=== PATIENT | male | born 1945 | race Caucasian/White ===

== ENCOUNTER → 2017-09-12 | Outpatient (CLI) | payer OTHER, MEDICARE ==
[~2017-09-12] MED LIST: COMMODE 3-IN-11 MIS; COZA100T PO; DICL75TA PO; ECASA81 PO; OXYC1TAB63 PO; PERC7.5T13 PO; SPIR25TA3 PO; WALKER WHEELS/F1 MIS; Z.0.NO CURRENT MEDS
== END ==
LOC: CPRE 11:46
PROVIDERS: ATTEND Orthopaedic Surgery Orthopaedic Surgery of the Spine
DX: Z01.812 Encounter for preprocedural laboratory examination (principal)

== ENCOUNTER 2017-09-15 07:33 | Inpatient (IN) | payer OTHER, MEDICARE ==
[~2017-09-15] VITALS: Ht 180.3 cm; Wt 142.7 kg
[~2017-09-15 07:33] MED LIST changes: -COMMODE 3-IN-11 MIS; -ECASA81 PO; -OXYC1TAB63 PO; -PERC7.5T13 PO; -WALKER WHEELS/F1 MIS; -Z.0.NO CURRENT MEDS
[2017-09-15] MEDS ORDERED: GENTAMICIN SULFATE 80 MG/2 ML VIAL ONE (07:56)
[2017-09-15] MEDS ORDERED: CHLORHEXIDINE GLUCONATE 2 % 1 PACK (2 CLOTHS) TOPICAL PRN (08:45)
[2017-09-15] MEDS ORDERED: SODIUM CHLORID 0.9% 500 ML IV PRN (08:45)
[2017-09-15] MEDS ORDERED: VANCOMYCIN 1000 MG/NS 250 ML (for <70 kg) IV SCH ×2 (08:45)
[2017-09-15] MEDS ORDERED: POVIDONE IODINE 5% (ANTISEPSIS KIT) 4 APPLICATIONS EACH NARE PRN (08:45)
[2017-09-15] MEDS ORDERED: CHLORHEXIDINE GLUCONATE 4% SOLN 120 ML BTL TOPICAL SCH (08:45)
[2017-09-15] MEDS ORDERED: METOPROLOL TARTRATE 25 MG TAB PO PRN (08:45)
[2017-09-15] MEDS ORDERED: LACTATED RINGER'S 1000 ML IV PRN (08:45)
[2017-09-15] MEDS ORDERED: TRANEXAMIC ACID IV SCH (09:00)
[2017-09-15] MEDS ORDERED: EXPAREL PERI-ARTICULAR INJECTION (TOTAL VOL. 60 ML) P-ARTICULR SCH ×2 (09:00)
[2017-09-15] MEDS ORDERED: SODIUM CHLORIDE 0.9% IV SCH (09:00)
[2017-09-15] MEDS ORDERED: ACETAMINOPHEN 1000 MG/100 ML 100 ML IV ONE (09:36)
[2017-09-15] MEDS ORDERED: DEXAMETHASONE SOD PHOS PF 10 MG/ML VIAL ONE (09:42)
[2017-09-15] MEDS ORDERED: BUPIVACAINE HCL PF 0.25% 30 ML VIAL ONE (09:42)
[2017-09-15] MEDS ORDERED: BUPIVACAINE LIPOSOME PF 1.3% 20 ML VIAL ONE ×2 (09:53)
[2017-09-15] MEDS ORDERED: ceFAZolin INJ 1,000 MG VIAL ONE (10:12)
[2017-09-15] MEDS ORDERED: ONDANSETRON HCL 4 MG/2 ML VIAL IV ONE (12:00)
[2017-09-15] MEDS ORDERED: LACTATED RINGER'S 1000 ML INJ 2,000 ML IV ONE (12:00)
[2017-09-15] MEDS ORDERED: ROCURONIUM INJ 50 MG/5 ML SYRINGE IV PUSH ONE (12:00)
[2017-09-15] MEDS ORDERED: LIDOCAINE HCL 1% PF 5 ML SYRINGE OTHER ONE (12:00)
[2017-09-15] MEDS ORDERED: ePHEDrine/NS 25 MG/5 ML SYRINGE IV ONE (12:00)
[2017-09-15] MEDS ORDERED: GLYCOPYRROLATE 1 MG/5 ML SYRINGE IV PUSH ONE (12:00)
[2017-09-15] MEDS ORDERED: SODIUM CHLORIDE 0.9% 20 ML VIAL IV ONE (12:00)
[2017-09-15] MEDS ORDERED: PHENYLEPH/NS 1000 MCG/10 ML SYR IV ONE (12:00)
[2017-09-15] MEDS ORDERED: NEOSTIGMINE 5 MG/5 ML SYRINGE IV PUSH ONE (12:00)
[2017-09-15] MEDS ORDERED: PROPOFOL 200 MG/20 ML AMP IV ONE (12:00)
[2017-09-15] MEDS ORDERED: diphenhydrAMINE HCL 50 MG/ML VIAL ONE (12:20)
--- NOTE | 2017-09-15 12:25 | PD.OP ---
cc: Kwame Velazquez MD Operative Report Date of Surgery: Sep 15, 2017 Preoperative Diagnosis: Osteoarthritis left knee Postoperative Diagnosis: Same Procedure: Left total knee replacement arthroplasty Anesthesia: Gen. with regional block for pain control Surgeon: Kwame Velazquez Regional Facilities Manager(s): MARIJA Victoria Operation and Findings: EBL: 100 cc INDICATION: This patient presents with long-standing arthritis of the knee. Attachment record documents conservative measures. The patient now presents for surgical treatment. NOTE: Jany Victoria PA-C was present for the entire surgical procedure as my assistant analyst. In my medical opinion her skill and care was necessary for proper management of this patient. TOURNIQUET TIME: 71 minutes COMPANY: [employer] FEMUR: Size 5, cruciate retaining, cemented TIBIA: Size 4, fixed bearing, cemented PATELLA: 38 mm POLYETHYLENE INSERT: 9, cruciate retaining mm PROCEDURE: This patient was brought the operating room and anesthetized in the supine position. The patient was positioned supine on the table. The tourniquet was placed about the thigh, and the leg was scrubbed with alcohol followed by Hibiclens followed by ChloraPrep and draped sterilely. A timeout was done, and antibiotics were given. After exsanguination the tourniquet was inflated to 250 mmHg. An anterior incision was made and a median parapatellar arthrotomy was performed. The patella was released laterally and subluxed allowing freehand cut of the patella which was then sized. A metal cap was placed over the exposed patellar surface for protection. A airline transport pilot hole was placed in the distal femur allowing a 3 valgus cut removing 10 mm from the distal femur. Anterior posterior and chamfer cuts were made. The posterior stabilize osteotomy was made. The attention was directed to the tibia. Retractors were positioned. The external alignment guide was used allowing the lateral tibia to be used as referencing guide and cut utilizing an oscillating saw taking care to avoid any injury to the surrounding soft tissues. This was sized properly. Trial reduction showed that the insert fit nicely. The patient had range of motion extension 0 flexion 125. A medial release was not necessary. The bony surfaces prepared. On the back table 2 packets of methylmethacrylate were mixed. The components were cemented. Excess cement was removed. The tourniquet let down and hemostasis was controlled. The final plastic insert was inserted. Range of motion was the same as previously noted. A drain was brought through a separate stab incision. The arthrotomy was repaired with interrupted #1 Vicryl suture, subcutaneous tissue 2-0 Vicryl suture and skin with metallic uriel A sterile dressing was applied. Sponge counts, needle counts and instrument counts were all correct. The patient tolerated procedure well and was taken to recovery in satisfactory condition. FINDINGS: There was severe osteoarthritis with erosion of bone stock worse, in the medial compartment. The final solution was excellent. There was no complication was appreciated. Kwame Velazquez MD Sep 15, 2017 12:25
[2017-09-15] MEDS ORDERED: ECASA81 PO (12:26)
[2017-09-15] MEDS ORDERED: OXYC1TAB63 PO (12:26)
[2017-09-15] MEDS ORDERED: ASPIRIN EC 81 MG TABEC PO ONE (12:30)
[2017-09-15] MEDS ORDERED: oxyCODONE/ACETAMINOPHEN 5 MG/325 MG TAB PO PRN (12:30)
[2017-09-15] MEDS ORDERED: TEMAZEPAM 15 MG CAP PO PRN (12:30)
[2017-09-15] MEDS ORDERED: MORPHINE SULFATE 8 MG/ML INJ IM PRN (12:30)
[2017-09-15] MEDS ORDERED: NALOXONE HCL 0.4 MG/ML AMP IV PUSH PRN (12:30)
[2017-09-15] MEDS ORDERED: MISCELLANEOUS PHARMACY INFORMATION XX ONE (12:30)
[2017-09-15] MEDS ORDERED: MISCELLANEOUS NURSING INFORMATION XX PRN (12:30)
[2017-09-15] MEDS ORDERED: Post-op Orders (for Pharmacy) XX ONE (12:30)
[2017-09-15] MEDS ORDERED: MORPHINE SULFATE 4 MG/ML INJ ONE (13:09)
[2017-09-15] MEDS ORDERED: MIDAZOLAM HCL 2 MG/2 ML VIAL ONE (13:09)
[2017-09-15] MEDS: LACTATED RINGER'S 1000 ML INJ 1,000 ML IV SCH (13:30)
[2017-09-15] MEDS ORDERED: *morphine SULFATE 10 MG/ML PERIprocedure ONLY ONE ×2 (13:45→14:09)
--- NOTE | 2017-09-15 13:49 | RADRPT ---
EXAM DATE/TIME: 09/15/2017 13:25 [facility] COMPARISON: No previous studies available for comparison. INDICATIONS : Left total knee replacement. MEDICAL HISTORY : Hypertension. Arthritis. SURGICAL HISTORY : Total knee replacement, left. ENCOUNTER: Initial ACUITY: 1 day PAIN SCORE: 10/10 LOCATION: Left knee. FINDINGS: Two view examination of the left knee demonstrates status post total knee arthroplasty. A surgical dr madsen overlies the suprapatellar bursa laterally. Bony mineralization is normal. CONCLUSION: Unremarkable limited examination of the left knee status post total knee arthroplasty. Jake Santamaria MD on September 15, 2017 at 13:46 Board Certified Radiologist. This report was verified electronically.
[2017-09-15 14:40] VITALS: BP 117/67; PULSE 77; RESP 18; TEMP 96.3; O2SAT 99
[2017-09-15] MEDS ORDERED: DO NOT ADM ANY ANTICOAGULANT DRUGS PRN (14:45)
[2017-09-15] MEDS: oxyCODONE/ACETAMINOPHEN 5 MG/325 MG TAB PO PRN ×2 (15:40→19:53)
[2017-09-15] MEDS: MAGNESIUM HYDROXIDE SUSP 30 ML CUP PO SCH (19:54)
[2017-09-15] MEDS: SENNOSIDES 8.6 MG TAB PO SCH (19:54)
[2017-09-15] MEDS: ASPIRIN EC 81 MG TABEC PO SCH (19:56)
[2017-09-15 20:15] VITALS: BP 103/59; PULSE 85; RESP 18; TEMP 97.4; O2SAT 98
[2017-09-16] VITALS (8 sets, daily range): BP systolic 103–127; BP diastolic 53–72; PULSE 71–98; RESP 16–18; TEMP 97–98.5; O2SAT 95–98
[2017-09-16] MEDS: LACTATED RINGER'S 1000 ML INJ 1,000 ML IV SCH ×2 (00:50→13:20)
[2017-09-16] MEDS: oxyCODONE/ACETAMINOPHEN 5 MG/325 MG TAB PO PRN ×3 (02:21→09:58)
[2017-09-16 06:10] LABS: HEMATOCRIT 32.1 % (39.0-51.0); HEMOGLOBIN 10.7 GM/DL (13.0-17.0)
[2017-09-16] MEDS ORDERED: WALKER WHEELS/F1 MIS (07:53)
[2017-09-16] MEDS ORDERED: COMMODE 3-IN-11 MIS (07:54)
--- NOTE | 2017-09-16 07:54 | HHI.DCPOC ---
Discharge Care Plan Diagnosis: (1) Osteoarthritis of left knee Your Health Problems Are: Difficulty with ADL Incision/Drains Inflammation Goals to Promote Your Health * To prevent worsening of your condition and complications * To maintain your health at the optimal level Directions to Meet Your Goals Take your medications as prescribed Follow your dietary instruction Follow activity as directed Keep your appointments as scheduled Take your immunizations and boosters as scheduled If your symptoms worsen call your PCP, if no PCP go to Urgent Care Center or Emergency Room Smoking is Dangerous to Your Health. Avoid second hand smoke Call the 24-hour hour crisis hotline for domestic abuse at Shavonne Verma Sep 16, 2017 07:54
--- NOTE | 2017-09-16 07:55 | PD.ORT.PN ---
Subjective Subjective Remarks No complaints. Pain well controlled. Drain intact. Ambulating independently Objective Vitals Vital Signs Date Time Temp Pulse Resp B/P (MAP) Pulse Ox O2 Delivery O2 Flow Rate FiO2 09/16/17 04:47 97 21 09/16/17 04:15 97.0 98 18 127/59 (81) 97 09/16/17 00:20 97.5 78 18 116/57 (76) 96 09/15/17 20:15 97.4 85 18 103/59 (74) 98 09/15/17 14:40 96.3 77 18 117/67 (84) 99 09/15/17 14:15 98.0 69 16 113/61 (78) 97 Nasal Cannula 2 09/15/17 14:00 73 16 109/67 (81) 97 Nasal Cannula 2 09/15/17 13:45 71 16 108/58 (75) 97 Nasal Cannula 2 09/15/17 13:30 74 16 107/58 (74) 95 Nasal Cannula 2 09/15/17 13:15 74 16 102/59 (73) 96 Nasal Cannula 2 09/15/17 13:00 98.0 81 16 109/58 (75) 91 Nasal Cannula 2 09/15/17 08:10 98.6 75 20 137/79 (98) 96 I/O 09/15/17 09/15/17 09/15/17 09/16/17 09/16/17 09/16/17 07:00 15:00 23:00 07:00 15:00 23:00 Intake Total 1785 ml 480 ml 960 ml Output Total 3100 ml 360 ml 360 ml Balance -1315 ml 120 ml -360 ml 960 ml Intake Oral 60 ml 480 ml 960 ml IV Total 1725 ml Output Urine Total 0 ml Drainage Total 360 ml 360 ml Estimated Blood Loss 100 ml Other 3000 ml # Voids 1 4 # Bowel Movements 0 0 Result Diagram: 09/16/17 0525 Imaging Last 24 hours Impressions Knee X-Ray 09/15/17 1220 Signed Impressions: Service Date/Time: August 13:25 - CONCLUSION: Unremarkable limited examination of the left knee status post total knee arthroplasty. Jake Santamaria MD Objective Remarks Drain intact. 600 cc postop. Dressing dry. X-ray find. Neuro exam normal. No calf tenderness or abnormal swelling Assessment & Plan Assessment and Plan Osteoarthritis left knee. Surgery: Left TKA. PLAN: Aspirin twice a day, 81 mg. Oxycodone for pain. Would be able to be discharged today but drainage is still fairly high from drain. DC drain Tuesday and discharged home. Home healthcare. Home physical therapy. Weightbearing as tolerated. No dressing change Orthopedically stable Kwame Velazquez MD Sep 16, 2017 07:55
--- NOTE | 2017-09-16 07:58 | HHI.FF ---
Face to Face Verification Diagnosis: (1) Osteoarthritis of left knee Physical Therapy Gait training, Safety evaluation, Transfer training, bed to chair Knee: Total knee, Protocol: Left, Full weight bearing Canvas Knee Splint: When in bed & 2 pillows btw thighs Left LE Weight Bearing: WB as tolerated Additional Instructions PT 4 days/wk for 2 weeks. WBAT LLE. TKA protocol. CPM twice daily 0-60 with goal of 100 flexion. Nursing RN Days per Week: 2 x Week(s): 1 Dressing Changes: Do not change dressing Additional Instructions Vitals assessment. Dressing assessment - do not change unless saturated or erythema. I have seen patient Brennan Hoyt Nikkodelma on 09/16/17. My clinical findings support the need for the requested home health care services because: Limited ability to care for self High risk of falls I certify that my clinical findings support that this patient is homebound because: Post-op weakness Unsteady gait/balance Shavonne Verma Sep 16, 2017 07:58
--- NOTE | 2017-09-16 07:59 | HHI.DS ---
Discharge Summary Admission Date Sep 15, 2017 at 07:33 Discharge Date: Sep 17, 2017 Admitting Diagnosis see below Diagnosis: (1) Osteoarthritis of left knee Diagnosis: Principal ICD Codes: M17.12 - Unilateral primary osteoarthritis, left knee Procedures Left total knee arthroplasty Brief History This is a 72 year old male patient CBC/BMP: 09/16/17 0525 Significant Findings Laboratory Tests Test 09/16/17 05:25 Hemoglobin 10.7 GM/DL (13.0-17.0) Hematocrit 32.1 % (39.0-51.0) PE at Discharge Drain intact. 600 cc postop. Dressing dry. X-ray find. Neuro exam normal. No calf tenderness or abnormal swelling Hospital Course Increased drain output day #1. Continued drain to day #2. Percocet 5mg, ASA 81mg bid. HHC. Pt Condition on Discharge: Stable Discharge Disposition: Disch w/ Home Health Serv Discharge Instructions Diet Instructions: As Tolerated, No Restrictions, High Fiber Diet Activities You Can Perform: Weight Bearing as Javier Activities to Avoid: Strenuous Activity New Medications: Commode 3-in-1 (Commode 3-in-1) 1 Mis Mis EA .ROUTE DIRECTED, #1 0 Refills Walker with Front Wheels (Walker with Front Wheels) 1 Mis Mis EA .ROUTE DIRECTED, #[address] (Aspirin DR) 81 Mg Tabdr 81 MG PO BID for Prevent Blood Clot, #60 TAB Oxycodone HCl/Acetaminophen (Oxycodone-Acetaminophen 5-325) 5 Mg-325 Mg Tablet 1 TAB PO Q4H PRN for pain, #50 TAB Continued Medications: Diclofenac Sodium (Diclofenac Sodium DR) 75 Mg Tabdr 75 MG PO BID, #60 TAB 0 Refills Losartan (Cozaar) 100 Mg Tab 100 MG PO DAILY for Blood Pressure Management, #30 TAB 0 Refills Spironolactone-Hydrochlorothiazide (Spironolactone-Hydrochlorothiazide) 25-25 Mg Tab 1 TAB PO DAILY, #30 TAB 0 Refills Shavonne Verma Sep 16, 2017 07:59
[2017-09-16] MEDS: LOSARTAN 50 MG TAB PO SCH (09:57)
[2017-09-16] MEDS: MAGNESIUM HYDROXIDE SUSP 30 ML CUP PO SCH ×2 (09:58→20:22)
[2017-09-16] MEDS: SPIRONOLACTONE/HCTZ 25 MG/25 MG TAB PO SCH (09:58)
[2017-09-16] MEDS: ASPIRIN EC 81 MG TABEC PO SCH ×2 (09:58→20:22)
[2017-09-16] MEDS ORDERED: oxyCODONE/ACETAMINOPHEN 7.5 MG/325 MG TAB PO PRN (13:30)
[2017-09-16] MEDS: oxyCODONE/ACETAMINOPHEN 7.5 MG/325 MG TAB PO PRN ×3 (13:35→21:37)
[2017-09-16] MEDS: SENNOSIDES 8.6 MG TAB PO SCH (20:22)
[2017-09-17] VITALS: BP 101/64; PULSE 85; RESP 16; TEMP 96.6; O2SAT 96
[2017-09-17] MEDS: LACTATED RINGER'S 1000 ML INJ 1,000 ML IV SCH ×2 (01:01→14:20)
[2017-09-17] MEDS: oxyCODONE/ACETAMINOPHEN 7.5 MG/325 MG TAB PO PRN ×4 (01:31→13:38)
[2017-09-17 07:21] LABS: HEMATOCRIT 28.9 % (39.0-51.0); HEMOGLOBIN 9.9 GM/DL (13.0-17.0)
[2017-09-17 08:00] VITALS: BP 114/59; PULSE 79; RESP 16; TEMP 97.6; O2SAT 96
[2017-09-17] MEDS: LOSARTAN 50 MG TAB PO SCH ×2 (09:00→09:25)
[2017-09-17] MEDS ORDERED: PERC7.5T13 PO (09:05)
[2017-09-17] MEDS: MAGNESIUM HYDROXIDE SUSP 30 ML CUP PO SCH (09:24)
[2017-09-17] MEDS: SPIRONOLACTONE/HCTZ 25 MG/25 MG TAB PO SCH (09:25)
[2017-09-17] MEDS: ASPIRIN EC 81 MG TABEC PO SCH (09:25)
--- NOTE | 2017-09-17 11:34 | PD.ORT.PN ---
Subjective Subjective Remarks Out of Bed and walking. Pain is controlled. Objective Vitals Vital Signs Date Time Temp Pulse Resp B/P (MAP) Pulse Ox O2 Delivery O2 Flow Rate FiO2 09/17/17 08:00 97.6 79 16 114/59 (77) 96 09/17/17 07:55 21 09/17/17 00:00 96.6 85 16 101/64 (76) 96 09/16/17 20:00 98.5 85 16 112/66 (81) 98 09/16/17 17:22 95 21 09/16/17 16:00 97.3 79 18 103/53 (70) 97 09/16/17 12:00 98.2 71 18 119/59 (79) 95 I/O 09/16/17 09/16/17 09/16/17 09/17/17 09/17/17 09/17/17 07:00 15:00 23:00 07:00 15:00 23:00 Intake Total 960 ml 600 ml 1260 ml Output Total 360 ml 210 ml 155 ml 130 ml Balance -360 ml 750 ml 445 ml 1130 ml Intake Oral 960 ml 600 ml 1260 ml Drainage Total 360 ml 210 ml 155 ml 130 ml # Voids 4 4 4 # Bowel Movements 0 Result Diagram: 09/17/17 0609 Imaging Last 24 hours Impressions Knee X-Ray 09/15/17 1220 Signed Impressions: Service Date/Time: August 13:25 - CONCLUSION: Unremarkable limited examination of the left knee status post total knee arthroplasty. Jake Santamaria MD Procedures Left total knee arthroplasty Objective Remarks Drain intact. Output decreased overnight. Dressing dry. X-ray find. Neuro exam normal. No calf tenderness or abnormal swelling Assessment & Plan Problem List: (1) Osteoarthritis of left knee ICD Codes: M17.12 - Unilateral primary osteoarthritis, left knee Qualifiers: Qualified Codes: M17.12 - Unilateral primary osteoarthritis, left knee Assessment and Plan Osteoarthritis left knee. Surgery: Left TKA. POD 2 PLAN: Aspirin twice a day, 81 mg. Oxycodone for pain. increased to 7.5mg. rx written DC drain today Home healthcare. Home physical therapy. Weightbearing as tolerated. No dressing change Orthopedically stable Obi Fisher Jr., MD Sep 17, 2017 11:34
[2017-09-17 12:00] VITALS: BP 116/67; PULSE 73; RESP 19; TEMP 97.6; O2SAT 96
== END 2017-09-17 15:01 | disposition home health service (06) | DRG 470 ==
LOC: HSDI 07:33 → N06A 14:56
PROVIDERS: ADMIT Orthopaedic Surgery Orthopaedic Surgery of the Spine; ATTEND Orthopaedic Surgery Orthopaedic Surgery of the Spine
PROC: 3E0T3BZ Introduction of Anesthetic Agent into Peripheral Nerves and Plexi, Percutaneous Approach (ICD-10-PCS; 2017-09-15)
PROC: 0SRD0J9 Replacement of Left Knee Joint with Synthetic Substitute, Cemented, Open Approach (ICD-10-PCS; principal; 2017-09-15 09:55)
DX: M17.12 Unilateral primary osteoarthritis, left knee (principal); Z68.41 Body mass index [BMI] 40.0-44.9, adult; I10 Essential (primary) hypertension; E66.01 Morbid (severe) obesity due to excess calories; Z87.891 Personal history of nicotine dependence; Z88.0 Allergy status to penicillin
CPT/HCPCS: 73560; 85014; 85018; 86850; 86900; 86901; 86920; 94150; C1776; C9290; J0131; J0690; J1100; J1200; J1580; J2250; J2270; J2370; J2405; J2710; J3010; J3370; J7050; J7120; L1830